=== PATIENT | female | born 1945 | race Caucasian/White ===

== ENCOUNTER 2018-05-21 09:57 | Observation (INO) | payer MEDICARE, BC, OTHER ==
[~2018-05-21] VITALS: Ht 152.4 cm; Wt 71.2 kg
[~2018-05-21 09:57] MED LIST: GLYBURIDE 2.52.5 MG PO; PERCOCET 7.5-31 EACH PO
[2018-05-21] MEDS ORDERED: LOMOTIL TABLET1 EACH PO (10:17)
[2018-05-21 10:40] LABS: HEMATOCRIT 33.1 % (37.0-47.0); HEMOGLOBIN 10.9 gm/dL (12.0-15.0); MCH 28.7 pg (26.0-34.0); MCHC 32.9 g/dL (28.0-37.0); MCV 87.1 fL (80.0-100.0); MPV 8.3 fl. (7.2-11.1); RBC 3.8 mil/uL (4.20-5.00); RDW-CV 14.3 % (10.5-14.5); WBC 10.6 thou/uL (4.0-11.0)
[2018-05-21 10:50] LABS: CREATININE 0.8 mg/dL (0.6-1.3); POTASSIUM 4.3 mmol/L (3.5-5.1)
--- NOTE | 2018-05-21 14:40 | EKG ---
[place] [address] ELECTROCARDIOGRAM REPORT Name: RACHELL CHAIREZ Room: [facility]#: [id number] Admission: 05/21/18 Attend Phys: Will Anderson II Discharge: Date of : 41 Report #: [id number] THIS REPORT FOR: //name// [facility] Test Date: 2018-05-21 Test Time: 10:26:19 Pat Name: RACHELL CHAIREZ Department: Room: Gender: F [employer]: : 1945 Requested By: Will Anderson Order Number: [id number] Reading MD: Chuck Bob Measurements Intervals Joiner Rate: 72 P: 65 CA: 138 QRS: 57 QRSD: 95 T: 49 QT: 405 QTc: 444 Interpretive Statements Sinus rhythm No previous ECG available for comparison Electronically Signed On 05-21-2018 14:40:31 CDT by Chuck Bob [email or web address] <ELECTRONICALLY SIGNED> By: Chuck Bob MD, [facility] 05/21/18 1440 1026 1026 Chuck Bob MD, [facility] /EPI
[2018-05-21] MEDS ORDERED: PERCOCET PO (15:17)
[2018-05-21 19:02] VITALS: BP 164/59
[2018-05-22 00:05] VITALS: BP 164/61
[2018-05-22 03:54] VITALS: BP 155/56
[2018-05-22 09:20] VITALS: BP 148/66
[2018-05-22 10:25] VITALS: BP 148/66
[2018-05-22 10:38] VITALS: BP 148/66
[2018-05-22 12:05] VITALS: BP 148/66
--- NOTE | 2018-05-23 14:37 | OP ---
[facility] [address] [place] [address] OPERATIVE REPORT Name: RACHELL CHAIREZ Room: [address] Meaghan Moreira#: [id number] Admission: 05/21/18 Attend Phys: Mg Shafer Discharge: 05/22/18 Date of : 41 Report #: [id number] THIS REPORT FOR: //name// CC: Will Mas DATE OF SERVICE: 05/21/2018 PREOPERATIVE DIAGNOSES: 1. Right proximal humerus fracture dislocation with comminution. 2. Right distal radius fracture with intra-articular involvement and greater than 3 parts. POSTOPERATIVE DIAGNOSES: 1. Right proximal humerus fracture with comminution and dislocation. 2. Right distal radius fracture, greater than 3 parts. PROCEDURES PERFORMED: 1. Open reduction and internal fixation of the right proximal humerus fracture with comminution and dislocation, reduction and internal fixation with plate. 2. Open reduction and internal fixation of the right distal radius fracture, greater than 3 parts. SURGEON: Will Anderson II, DO. CISSP: DEBBIE Cole. ANESTHESIA: Per operative record. ESTIMATED BLOOD LOSS: Minimal. ANTIBIOTICS: Per operative record. DRAINS: None. COMPLICATIONS: None. CONDITION OF THE PATIENT: Stable to the recovery room. IMPLANTS: Pat distal radius plate and axial 3 proximal humerus plate with appropriate screws. DESCRIPTION OF PROCEDURE: The patient was taken to the operative suite and placed supine on the OR table and given appropriate anesthesia. The patient was placed in modified beach chair position. All bony prominences were well padded. [place] [id number] OPERATIVE REPORT Name: RACHELL CHAIREZ Room: [address] Meaghan Moreira#: [id number] Admission: 05/21/18 Attend Phys: Mg Shafer Discharge: 05/22/18 Date of : 41 Report #: [id number] The right upper extremity was sterilely prepped and draped. Surgery began by evaluation of the right distal radius on the radiolucent Hardy stand. The fracture was visualized and found to be comminuted with displacement. An incision was then made over the flexor carpi radialis tendon, carried down to the subcutaneous tissues. The tendon was then retracted and this was carried down to the bone at the fracture site. The pronator was reflected off the bone and these multiple pieces were then placed back into near anatomic alignment with appropriate slope and volar angulation. A volar plate was then applied, checked with C-arm in both AP and lateral directions and secured utilizing screw fixation, which locked into the plate. This showed to have near anatomic reduction of all fracture fragments and intra-articular region was noted to be in congruence throughout. Final irrigation was performed. Wound was then closed with a 2-0 Vicryl to the subcuticular layer and a running Monocryl stitch with Dermabond and a soft wrap dressing applied. At this time, a stockinette was placed over this region and it was secured along the lateral aspect of the body. A separate incision was then made over the proximal aspect of the humerus to the skin and subcutaneous tissues. A deltopectoral approach was then performed, retracting the deltoid laterally to evaluate the fracture site. This was found to have a slight anterior subluxation and dislocation, which was reduced and multiple fracture fragments were then placed back in the near anatomic alignment. There was found to be some shortening due to fracture impaction. Slight reduction of this was performed. However, it did form a bony cavity and was held with reduction forceps in this alignment. Plate was then placed over the lateral aspect of the shoulder. It was then secured using locking and nonlocking screws to the lateral aspect of the humerus. There was found to be fraying to the rotator cuff, but no apparent rotator cuff tears were noted. A final irrigation was then performed to the shoulder. Final images were taken with the shoulder in both the internally and externally rotated views as well as axillary view did the shoulder within its glenoid and no evidence of further dislocation. Irrigation was then performed of the wound. It was then closed with 1 Vicryl to the deltopectoral region and then 2-0 Vicryl with running Monocryl stitch. Dermabond was applied. The patient was then placed in a shoulder immobilizer to maintain this alignment and a splint was applied to the volar aspect of the distal radius. This was then placed in the shoulder immobilizer and the patient was then transported to the recovery room in stable condition. Counts were correct throughout the procedure. <ELECTRONICALLY SIGNED> By: Will Anderson II, DO 05/23/18 1437 1207 [id number] Anderson II, DO /nt
== END 2018-05-22 11:45 | disposition home or self-care (01) ==
LOC: M.SUR 09:57 → M.ORTHSURG 17:38
PROVIDERS: Orthopaedic Surgery; ADMIT Internal Medicine
DX: S42.201A Unspecified fracture of upper end of right humerus, initial encounter for closed fracture (principal); S52.571A Other intraarticular fracture of lower end of right radius, initial encounter for closed fracture; E11.9 Type 2 diabetes mellitus without complications; M19.90 Unspecified osteoarthritis, unspecified site; W19.XXXA Unspecified fall, initial encounter; Y93.89 Activity, other specified; Y92.89 Other specified places as the place of occurrence of the external cause; Y99.8 Other external cause status